=== PATIENT | male | born 1990 | race Caucasian/White ===

== ENCOUNTER 2024-09-21 17:21 | Emergency (ER) | payer SELFPAY ==
[2024-09-21 17:53] VITALS: BP 150/96; PULSE 94; RESP 18; TEMP 36.8; O2SAT 100
--- NOTE | 2024-09-21 18:05 | ED_ITS ---
HPI - Wound/Laceration General Chief Complaint: Wound/Laceration Stated Complaint: lt hand laceration Time Seen by Provider: 09/21/24 17:50 Source: patient and RN notes reviewed Mode of arrival: ambulatory Limitations: no limitations History of Present Illness HPI narrative: 34-year-old male presents [facility] complaining of laceration to left hand. Patient was washing dishes when the glass broke and lacerated his left hand. Patient is unsure of his tetanus status. Patient reports having a laceration to the palm of his left hand. Patient denies any other injury. Denies any numbness or tingling. Patient says he is able to make a fist to move his fingers. Bleeding is controlled prior to arrival. 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 Related Data Home Medications ?Medication ?Instructions ?Recorded ?Confirmed ?Last Taken ?Type pregabalin 200 mg capsule (Lyrica) 200 mg PO TID 09/21/24 09/21/24 Unknown History Allergies Allergy/AdvReac Type Severity Reaction Status Date / Time No Known Allergies Allergy Verified 09/21/24 17:52 Review of Systems Review of Systems: CONSTITUTIONAL: Denies fever, chills, or sweats. EYES: Denies visual changes, redness, or discharge. ENT: Denies rhinorrhea, congestion, sore throat, or otalgia. CARDIOVASCULAR: Denies chest pain, palpitations, or edema. RESPIRATORY: Denies cough or dyspnea. GASTROINTESTINAL: Denies abdominal pain, nausea, vomiting, or diarrhea. GENITOURINARY: Denies dysuria or hematuria. SKIN: Denies rash or itching. Positive for laceration. MUSCULOSKELETAL: Denies back pain, joint pain, or myalgia. NEUROLOGIC: Denies headache, numbness, or weakness. PSYCHIATRIC: Denies anxiety or depression. All other systems reviewed are negative, except as documented in HPI. PMFSH Comments At the time of my signature, I reviewed and agree with the nursing past medical, surgical, social, and family history. There is no relevant family history pertinent to the patient complaint. Exam Narrative: GENERAL: This is a well-nourished, well-developed adult, in no apparent distress. They are non ill-appearing, nontoxic appearing. HEAD: normocephalic, atraumatic. EYES: Sclera clear/white. Conjunctiva normal. Vision is grossly intact. Extraocular movements intact EARS: External ears normal, Hearing grossly intact. NOSE: External nose normal THROAT: Mucous membranes moist, NECK: Neck supple, CARDIOVASCULAR: Regular rate and rhythm RESPIRATORY: Respiratory rate normal, respiratory effort nonlabored, no respiratory distress SKIN: Laceration to the palmar surface of the left hand located in between the thumb and index finger. Laceration appears linear and irregular shaped. Wound approximates well. Wound measures approximately 5 cm long. Depth approximately 1 cm deep. Patient is able to make a fist, stop sign, thumbs-up sign, okay sign. Patient is able to feel examiner touch is fingers. Sensation is normal. Normal pronation supination of left wrist. Left radial pulse 2 +and palpable. Capillary refill less than 2 seconds. Neuro Vascular status intact distal injury. No bony tenderness. NEURO: awake, alert, and oriented to person, place and time. There were no obvious focal neurologic abnormalities. Right arm is contracted from previous injury. EXTREMITIES: No joint tenderness, effusion, or edema noted. Course Course Emergency Course: Portions of this record may have been created with voice recognition software Level of Care: Express Care Visit Vital Signs Vital signs: Vital Signs Temperature 98.2 F 09/21/24 17:53 Pulse Rate 94 09/21/24 17:53 Respiratory Rate 18 09/21/24 17:53 Blood Pressure 150/96 H 09/21/24 17:53 Pulse Oximetry 100 09/21/24 17:53 Oxygen Delivery Room Air 09/21/24 17:53 Temperature 98.2 F 09/21/24 17:53 Pulse Rate 94 09/21/24 17:53 Respiratory Rate 18 09/21/24 17:53 Blood Pressure 150/96 H 09/21/24 17:53 Pulse Oximetry 100 09/21/24 17:53 Oxygen Delivery Room Air 09/21/24 17:53 Reviewed Procedures Laceration Laceration 1: Date: 09/21/24 Time: 18:55 Site: hand (Left palm) Side (If applicable): left Size (cm): 5 Description: linear and irregular Depth: simple, single layer Local Anesthetic: lidocaine 1% Amount of anesthesia used (mL): 5 Pre-repair: wound explored and irrigated extensively ====== Skin Level ====== Skin layer closed with: nylon Size (cm): 4-0 Number of sutures: 10 Technique: simple, interrupted ====== Subcutaneous Layer ====== ====== Muscle Layer ====== ====== Tendon Layer ====== Dressing: Non adherent dressing MDM - Wound/Laceration MDM Narrative Medical decision making narrative: Over foreign body identified through exploration of wound. Patient was covered with class therefore x-ray was I indicated to assess for foreign body as it would be radiopaque. Successful laceration repair to left palm. Ten sutures were placed. Advised patient to follow-up with hand specialist for further evaluation and management. Neurovascular status intact distal injury. Normal hand function. Patient's tetanus was updated today. Will prophylactically treat for infection prevention with cephalexin. Discussed physical exam fi ndings. Advised supportive measures and signs/symptoms to go to the ER. Pt is appropriate for outpt treatment and f/u. Differential Diagnosis Differential diagnosis: Likely laceration, abrasion and avulsion of skin Critical Care Time Critical Care Time Critical Care Time: No Discharge Plan Discharge Clinical Impression: Laceration Patient Disposition: Home Condition: Stable Instructions: Antibiotic Form, Laceration (ED) Additional Instructions: Your sutures need to be removed in 10-14 days. ?Wear the dressing that has been applied for the first 24 hours to allow a scab to start forming. ?After this, you may remove and wash as normal with soap and water. ?Do NOT wash with peroxide or alcohol. ?Do NOT apply antibiotic ointment. Take cephalexin as directed. Do not soak or scrub the wound. Avoid dirty water such as dish washing, pools, lakes, hot tubs, Jacuzzi, tub soaks until the wound has completely healed. Take tylenol or ibuprofen at home for pain, if able. Please follow-up with hand specialist in 3-5 days. ?Please go to ER if he develops any signs of infection such as redness, swelling, increased pain, or drainage, or any other concerns.. ? Patient Language: [place]i Prescriptions: New cephalexin 500 mg capsule 500 mg PO Q6H 7 Days Qty: 28 0RF No Action pregabalin [Lyrica] 200 mg capsule 200 mg PO TID Follow-up/Referrals: Jaki Todd MD [Physician] - Time of Disposition: 19:25
[2024-09-21] MEDS: LIDOCAINE 1% LOCAL INJ 2 ML AMPUL 6 ML INFILTRATE (18:16)
[2024-09-21] MEDS: TETANUS,DIPHTHERIA,AC PERTUSSIS ADULT (0.5 ML) BOOSTRIX IM (18:17)
== END 2024-09-21 19:28 | disposition home or self-care (01) ==
DX: S61.412A Laceration without foreign body of left hand, initial encounter (principal); W25.XXXA Contact with sharp glass, initial encounter; Y93.G1 Activity, food preparation and clean up; Z23 Encounter for immunization
CPT/HCPCS: 12002; 90471; 90715; 99213; G0463; J2003

== ENCOUNTER 2024-10-05 16:35 | Emergency (ER) | payer SELFPAY ==
[2024-10-05 16:43] VITALS: BP 144/95; PULSE 98; RESP 20; TEMP 36.6; O2SAT 100
--- NOTE | 2024-10-05 16:58 | ED.SKABFB ---
HPI - Skin/Abscess/Foreign Bdy General Chief complaint: Skin/Abscess/Foreign Body Stated complaint: Stitches Removal Time Seen by Provider: 10/05/24 16:40 Source: patient and RN notes reviewed Mode of arrival: ambulatory Limitations: no limitations History of Present Illness HPI narrative: 34-year-old male presents Express Care for suture removal. Patient sutures placed 14 days ago to his left palm. Patient completed course of Keflex. Patient denies any signs of infection. Patient denies any numbness, tingling hand dysfunction, or hand weakness. Patient did not follow-up with the hand specialist. Related Data Home Medications ?Medication ?Instructions ?Recorded ?Confirmed ?Last Taken ?Type pregabalin 200 mg capsule (Lyrica) 200 mg PO TID 09/21/24 09/21/24 Unknown History Allergies Allergy/AdvReac Type Severity Reaction Status Date / Time No Known Allergies Allergy Verified 10/05/24 16:57 Review of Systems Review of Systems: CONSTITUTIONAL: Denies fever, chills, or sweats. EYES: Denies visual changes, redness, or discharge. ENT: Denies rhinorrhea, congestion, sore throat, or otalgia. CARDIOVASCULAR: Denies chest pain, palpitations, or edema. RESPIRATORY: Denies cough or dyspnea. GASTROINTESTINAL: Denies abdominal pain, nausea, vomiting, or diarrhea. GENITOURINARY: Denies dysuria or hematuria. SKIN: Denies rash or itching. Positive for laceration. MUSCULOSKELETAL: Denies back pain, joint pain, or myalgia. NEUROLOGIC: Denies headache, numbness, or weakness. PSYCHIATRIC: Denies anxiety or depression. All other systems reviewed are negative, except as documented in HPI. PMFSH Comments At the time of my signature, I reviewed and agree with the nursing past medical, surgical, social, and family history. There is no relevant family history pertinent to the patient complaint. Exam Narrative: GENERAL: This is a well-nourished, well-developed adult, in no apparent distress. They are non ill-appearing, nontoxic appearing. HEAD: normocephalic, atraumatic. EYES: Sclera clear/white. Conjunctiva normal. Vision is grossly intact. Extraocular movements intact EARS: External ears normal, NOSE: External nose paul THROAT: Mucous membranes moist, CARDIOVASCULAR: Regular rate and rhythm RESPIRATORY: Respiratory rate normal, respiratory effort nonlabored, no respiratory distress SKIN: Left hand: Approximately 5 cm laceration with sutures in place to the palmar surface of the left hand between the thumb and index finger. No area of fluctuance, no induration, no surrounding cellulitis, no exudate, nontender to palpate. Normal sensation. Capillary refill less than 2 seconds. Neurovascular status intact distal injury. 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 Unable to compare due to contracture to right hand. Patient is able to make a fist, stop sign, thumbs-up sign, and okay sign. Ulnar radial nerve distribution intact. Left radial pulse 2 +palpable. Patient stable levels fingers. NEURO: awake, alert, and oriented to person, place and time. There were no obvious focal neurologic abnormalities. Course Course Emergency Course: Portions of this record may have been created with voice recognition software Level of Care: Express Care Visit Vital Signs Vital signs: Vital Signs Temperature 97.8 F 10/05/24 16:43 Pulse Rate 98 10/05/24 16:43 Respiratory Rate 20 10/05/24 16:43 Blood Pressure 144/95 H 10/05/24 16:43 Pulse Oximetry 100 10/05/24 16:43 Oxygen Delivery Room Air 10/05/24 16:43 Temperature 97.8 F 10/05/24 16:43 Pulse Rate 98 10/05/24 16:43 Respiratory Rate 20 10/05/24 16:43 Blood Pressure 144/95 H 10/05/24 16:43 Pulse Oximetry 100 10/05/24 16:43 Oxygen Delivery Room Air 10/05/24 16:43 Reviewed MDM - Skin/Abscess/Foreign Bdy MDM Narrative Medical decision making narrative: Successful removal 10 sutures. No evidence of infection. Neurovascular status is intact in hand. Normal hand function. Advised follow-up with hand specialist if symptoms of hand dysfunction develop. Discussed physical exam findings. Advised supportive measures and signs/symptoms to go to the ER. Pt is appropriate for outpt treatment and f/u. Differential Diagnosis Differential diagnosis: Likely cellulitis and other (Laceration, hand injury) Critical Care Time Critical Care Time Critical Care Time: No Discharge Plan Discharge Clinical Impression: Encounter for removal of sutures Patient Disposition: Home Condition: Stable Instructions: Care For Your Stitches (ED) Additional Instructions: Your sutures were removed today. There is no signs of infection. Please follow-up with the hand specialist if he develops any problems with your hand function, numbness or tingling, weakness in her hand. Please wash the wound daily with mild soap and water. You may apply Vaseline or Aquaphor to help moisturize the wound. Avoid dirty water until it is healed completely. Please go to the ER if you does develop any redness, swelling, green yellow discharge, fevers, pain, or any other concerns. Patient Language: Ukrainian Prescriptions: No Action pregabalin [Lyrica] 200 mg capsule 200 mg PO TID cephalexin 500 mg capsule 500 mg PO Q6H 7 Days Qty: 28 0RF Follow-up/Referrals: PHYSICIAN,CLINICAL RESEARCH SPEC [Primary Care Provider] - Time of Disposition: 16:51
== END 2024-10-05 17:00 | disposition home or self-care (01) ==
DX: S61.412D Laceration without foreign body of left hand, subsequent encounter (principal); X58.XXXD Exposure to other specified factors, subsequent encounter
CPT/HCPCS: 99211; G0463